=== PATIENT | female | born 1935 | race Caucasian/White ===

== ENCOUNTER → 2019-05-23 | Outpatient (CLI) | payer MEDICARE ==
--- NOTE | 2019-05-28 12:35 | MY ---
Date of Service: 05/23/19 Clinical Data: Encounter for screening mammogram for malignant neoplasm of breast BILATERAL MAMMOGRAMS: Comparison is made to a prior exam dated 04/07/18. The breasts are almost entirely fat. No changes from the prior exam. No evidence of malignancy. IMPRESSION: No evidence of malignancy. One-year followup mammography is recommended. BI-RAD A: Mammogram - The breasts are almost entirely fatty ACR 1 - Negative Mammogram. The exam was reviewed with R2 CAD. [id number] [facility] [place]
== END ==
LOC: LB.MAM 14:15
PROVIDERS: ATTEND Nurse Practitioner Family
DX: Z12.31 Encounter for screening mammogram for malignant neoplasm of breast (principal)
CPT/HCPCS: 77067

== ENCOUNTER 2023-08-12 05:20 | Inpatient (IN) | payer MEDICARE ==
[2023-08-12] MEDS ORDERED: Sodium Chloride 0.9% 10 ML Syringe FLUSH PRN (05:41)
[2023-08-12] MEDS: Aspirin 81 MG Tab.Chew PO ONE (05:52)
[2023-08-12 06:00] LABS: HEMATOCRIT 40.4 % (37.0-47.0); HEMOGLOBIN 12.5 g/dL (11.5-16.5); MEAN CORPUSCULAR HEMOGLOBIN 31.9 pg (27.0-32.0); MEAN CORPUSCULAR HGB CONC 30.9 g/dL (31.0-35.0); MEAN PLATELET VOLUME 11.5 fL (6.0-10.0); RED BLOOD CELL COUNT 3.92 M/uL (3.80-5.80); RED CELL DISTRIBUTION WIDTH 13.8 % (11.0-16.0); WHITE BLOOD CELL COUNT,WBC 8.1 K/uL (4.0-11.0)
[2023-08-12 06:29] LABS: MAGNESIUM 1.9 mg/dL (1.8-2.4)
[2023-08-12 06:33] LABS: A/G RATIO 1.2 (0.8-2.0); ALBUMIN 3.5 g/dL (3.4-5.0); ANION GAP 17.7 mmol/L (5.0-15.0); BILIRUBIN TOTAL 0.6 mg/dL (0.0-1.0); BUN/CREATININE RATIO 18.1 (6-25); CALCIUM 9.3 mg/dL (8.5-10.1); CARBON DIOXIDE,CO2 23.8 mmol/L (21.0-32.0); CREATININE 0.72 mg/dL (0.55-1.02); EST CRCL DRUG DOSING (CG) 44.54 mL/min; POTASSIUM,K 3.5 mmol/L (3.5-5.1); PROTEIN TOTAL,TP 6.3 g/dL (6.4-8.2)
[2023-08-12] MEDS ORDERED: Furosemide 20 MG/2 ML VIAL IVPUSH ONE (07:15)
[2023-08-12] MEDS: Furosemide 20 MG/2 ML VIAL IVPUSH ONE (07:17)
[2023-08-12 10:26] LABS: PTT,PARTIAL THROMBOPLSTIN TIME 24.6 SECONDS (24.4-33.2)
[2023-08-12 10:27] LABS: PROTHROMBIN TIME 10.4 sec (9.0-11.5)
[2023-08-12] MEDS: Heparin Sodium 5,000 Units/ML Vial IVPUSH ONE (10:35)
[2023-08-12] MEDS: Furosemide 20 MG Tab PO SCH ×2 (10:35→14:29)
[2023-08-12] MEDS: Heparin Sodium/D5W 25,000 UNITS/500 ML BAG IV SCH (10:39)
[2023-08-12 15:33] LABS: ANION GAP 13.9 mmol/L (5.0-15.0); BUN/CREATININE RATIO 15.9 (6-25); CALCIUM 9.3 mg/dL (8.5-10.1); CARBON DIOXIDE,CO2 26.6 mmol/L (21.0-32.0); CREATININE 0.88 mg/dL (0.55-1.02); EST CRCL DRUG DOSING (CG) 36.44 mL/min; POTASSIUM,K 3.5 mmol/L (3.5-5.1)
[2023-08-12 15:45] LABS: TROPONIN I HIGH SENSITIVITY 125.8 pg/ml (<=60.4)
[2023-08-12] MEDS: Empagliflozin 10 MG Tab PO SCH (17:01)
[2023-08-12] MEDS: Simvastatin 20 MG Tab PO SCH (19:35)
[2023-08-13] MEDS: Heparin Sodium 5,000 Units/ML Vial IVPUSH ONE (00:13)
[2023-08-13] MEDS: Heparin Sodium 1,000 Units/ML 10 ML MDV ONE ×2 (00:15→14:02)
[2023-08-13 07:20] LABS: BASOPHILS ABSOLUTE AUTO 0.03 K/uL (0.02-0.10); BASOPHILS PERCENT AUTO 0.5 % (0.0-0.5); EOSINOPHILS ABSOLUTE AUTO 0.19 K/uL (0.04-0.40); HEMATOCRIT 40.7 % (37.0-47.0); HEMOGLOBIN 12.2 g/dL (11.5-16.5); LYMPHOCYTES PERCENT AUTO 31.5 % (20.0-40.0); MEAN CORPUSCULAR HEMOGLOBIN 32.3 pg (27.0-32.0); MEAN CORPUSCULAR VOLUME 108 fL (76-96); MEAN PLATELET VOLUME 11.8 fL (6.0-10.0); MONOCYTES ABSOLUTE AUTO 0.63 K/uL (0.20-0.80); MONOCYTES PERCENT AUTO 9.9 % (3.0-10.0); NEUTROPHILS PERCENT AUTO 55.1 % (45.0-70.0); PLATELET COUNT,PLT 241 K/uL (150-500); RED BLOOD CELL COUNT 3.78 M/uL (3.80-5.80); WHITE BLOOD CELL COUNT,WBC 6.4 K/uL (4.0-11.0)
[2023-08-13] MEDS: Lisinopril 20 MG Tab PO SCH (07:46)
[2023-08-13 10:03] LABS: A/G RATIO 1.1 (0.8-2.0); ALBUMIN 3.2 g/dL (3.4-5.0); ANION GAP 9.7 mmol/L (5.0-15.0); BILIRUBIN TOTAL 0.4 mg/dL (0.0-1.0); CALCIUM 9.2 mg/dL (8.5-10.1); CARBON DIOXIDE,CO2 30.5 mmol/L (21.0-32.0); CREATININE 0.8 mg/dL (0.55-1.02); EST CRCL DRUG DOSING (CG) 40.08 mL/min; POTASSIUM,K 4.2 mmol/L (3.5-5.1); PROTEIN TOTAL,TP 6.1 g/dL (6.4-8.2)
[2023-08-13 10:08] LABS: TROPONIN I HIGH SENSITIVITY 78.9 pg/ml (<=60.4)
[2023-08-13] MEDS: Metoprolol Succinate 25 MG Tab.ER PO SCH (11:31)
[2023-08-13] MEDS ORDERED: Heparin Sodium 5,000 Units/ML Vial IVPUSH SCH (14:00)
[2023-08-13] MEDS: Heparin Sodium 5,000 Units/ML Vial IVPUSH SCH (14:03)
[2023-08-13] MEDS: diphenhydrAMINE 50 MG/ML SDV IVPUSH ONE ×2 (15:08→15:50)
[2023-08-14 06:34] LABS: HEMATOCRIT 39.6 % (37.0-47.0); HEMOGLOBIN 11.8 g/dL (11.5-16.5); MEAN CORPUSCULAR HEMOGLOBIN 31.9 pg (27.0-32.0); MEAN CORPUSCULAR HGB CONC 29.8 g/dL (31.0-35.0); MEAN CORPUSCULAR VOLUME 107 fL (76-96); MEAN PLATELET VOLUME 11.3 fL (6.0-10.0); PLATELET COUNT,PLT 231 K/uL (150-500); RED CELL DISTRIBUTION WIDTH 14.2 % (11.0-16.0); WHITE BLOOD CELL COUNT,WBC 7.5 K/uL (4.0-11.0)
[2023-08-14 06:49] LABS: ANION GAP 11.5 mmol/L (5.0-15.0); BILIRUBIN TOTAL 0.4 mg/dL (0.0-1.0); BUN/CREATININE RATIO 18.3 (6-25); CALCIUM 9.2 mg/dL (8.5-10.1); CARBON DIOXIDE,CO2 28.4 mmol/L (21.0-32.0); CREATININE 0.82 mg/dL (0.55-1.02); EST CRCL DRUG DOSING (CG) 39.11 mL/min; POTASSIUM,K 3.9 mmol/L (3.5-5.1)
[2023-08-14 07:00] LABS: TROPONIN I HIGH SENSITIVITY 60.5 pg/ml (<=60.4)
[2023-08-14 07:45] LABS: ANISOCYTOSIS FEW; BURR CELLS FEW; ELLIPTOCYTES OCCASIONAL; GIANT PLATELETS RARE; HELMET CELLS FEW; PLATELET COUNT ESTIMATE ADEQUATE; POIKILOCYTOSIS FEW; STOMATOCYTES OCCASIONAL
[2023-08-14 16:21] VITALS: BP 147/101; PULSE 100
== END 2023-08-14 15:50 | DRG 280 ==
LOC: LB.ED 05:31 → SUPCPDRO 05:31 → UNDOADMIN 09:38 → LB.MS 09:38 → UNDOADMIN 10:18 → LB.MS 10:18
PROVIDERS: ADMIT Surgery; ATTEND Surgery
DX: I11.0 Hypertensive heart disease with heart failure (principal); I21.4 Non-ST elevation (NSTEMI) myocardial infarction; I50.33 Acute on chronic diastolic (congestive) heart failure; J90 Pleural effusion, not elsewhere classified; Z79.899 Other long term (current) drug therapy; R09.02 Hypoxemia
CPT/HCPCS: 36415; 71045; 71250; 80048; 80053; 83735; 83880; 84484; 85025; 85027; 85379; 85610; 85730; 93005; 93010; 96374; 99222; 99233; 99239; 99285; 99285-25; A9270-GY; J1200; J1644; J1940

== ENCOUNTER 2024-02-14 09:22 | Emergency (ER) | payer MEDICARE ==
[2024-02-14] MEDS: Acetaminophen/HYDROcodone 325-5 MG Tab PO ONE (10:53)
[2024-02-14 11:11] LABS: APPEARANCE,URINE CLEAR (CLEAR); BILIRUBIN,URINE NEGATIVE (NEGATIVE); COLOR,URINE YELLOW; GLUCOSE,URINE NEGATIVE (NEGATIVE); KETONES,URINE NEGATIVE (NEGATIVE); LEUKOCYTE ESTERASE,URINE SMALL (NEGATIVE); NITRITE,URINE NEGATIVE (NEGATIVE); OCCULT BLOOD,URINE TRACE-LYSED (NEGATIVE); PH,URINE 5.5 (5.0-8.0); PROTEIN,URINE NEGATIVE (NEGATIVE); UROBILINOGEN,URINE 0.2 E.U./dL (0.2-1.0)
[2024-02-14 11:17] LABS: RBC,URINE 0-5 /HPF; SQUAMOUS EPITHELIAL CELLS,UR OCCASIONAL /HPF; WBC,URINE 0-5 /HPF
[2024-02-15] MEDS: Morphine 4 MG/ML VIAL IVPUSH ONE (11:22)
== END 2024-02-14 12:51 | disposition home or self-care (01) ==
LOC: LB.ED 09:22
DX: S20.212A Contusion of left front wall of thorax, initial encounter (principal); N39.0 Urinary tract infection, site not specified; E78.00 Pure hypercholesterolemia, unspecified; I11.0 Hypertensive heart disease with heart failure; I50.9 Heart failure, unspecified; Z79.899 Other long term (current) drug therapy; Z79.82 Long term (current) use of aspirin; Z88.8 Allergy status to other drugs, medicaments and biological substances
CPT/HCPCS: 71101; 71250; 81001; 87086; 99284; A9270

== ENCOUNTER 2024-06-16 20:21 | Observation (INO) | payer MEDICARE ==
[2024-06-16 20:42] LABS: BASOPHILS ABSOLUTE AUTO 0.02 K/uL (0.02-0.10); BASOPHILS PERCENT AUTO 0.3 % (0.0-0.5); EOSINOPHILS ABSOLUTE AUTO 0.09 K/uL (0.04-0.40); EOSINOPHILS PERCENT AUTO 1.4 % (1.0-5.0); HEMATOCRIT 35.1 % (37.0-47.0); HEMOGLOBIN 11.4 g/dL (11.5-16.5); LYMPHOCYTES ABSOLUTE AUTO 1.36 K/uL (1.50-4.00); MEAN CORPUSCULAR HGB CONC 32.5 g/dL (31.0-35.0); MEAN CORPUSCULAR VOLUME 99 fL (76-96); MEAN PLATELET VOLUME 10.8 fL (6.0-10.0); MONOCYTES ABSOLUTE AUTO 0.47 K/uL (0.20-0.80); MONOCYTES PERCENT AUTO 7.3 % (3.0-10.0); NEUTROPHILS ABSOLUTE AUTO 4.54 K/uL (2.00-7.50); PLATELET COUNT,PLT 207 K/uL (150-500); RED BLOOD CELL COUNT 3.56 M/uL (3.80-5.80); RED CELL DISTRIBUTION WIDTH 13.2 % (11.0-16.0); WHITE BLOOD CELL COUNT,WBC 6.5 K/uL (4.0-11.0)
[2024-06-16 20:56] LABS: A/G RATIO 1.3 (0.8-2.0); ALBUMIN 3.7 g/dL (3.4-5.0); ANION GAP 15.9 mmol/L (5.0-15.0); BILIRUBIN TOTAL 0.5 mg/dL (0.0-1.0); BUN/CREATININE RATIO 28.6 (6-25); CARBON DIOXIDE,CO2 25.5 mmol/L (21.0-32.0); CREATININE 0.91 mg/dL (0.55-1.02); EST CRCL DRUG DOSING (CG) 35.24 mL/min; POTASSIUM,K 4.4 mmol/L (3.5-5.1); PROTEIN TOTAL,TP 6.5 g/dL (6.4-8.2)
[2024-06-16 21:14] LABS: APPEARANCE,URINE CLEAR (CLEAR); BILIRUBIN,URINE NEGATIVE (NEGATIVE); COLOR,URINE YELLOW; GLUCOSE,URINE NEGATIVE (NEGATIVE); KETONES,URINE NEGATIVE (NEGATIVE); LEUKOCYTE ESTERASE,URINE NEGATIVE (NEGATIVE); NITRITE,URINE NEGATIVE (NEGATIVE); OCCULT BLOOD,URINE NEGATIVE (NEGATIVE); PH,URINE 5.5 (5.0-8.0); PROTEIN,URINE NEGATIVE (NEGATIVE); UROBILINOGEN,URINE 0.2 E.U./dL (0.2-1.0)
[2024-06-16] MEDS: Sodium Chloride 0.9% 10 ML Syringe FLUSH PRN (22:15)
[2024-06-16] MEDS: Sodium Chloride 0.9% 1,000 ML IV ONE (23:53)
[2024-06-17] MEDS ORDERED: Acetaminophen 500 MG Tab PO PRN (01:00)
[2024-06-17] MEDS ORDERED: NITROGLYCERIN 0.4 MG SL PRN (01:02)
[2024-06-17] MEDS: Sodium Chloride 0.9% 1,000 ML IV SCH (05:27)
[2024-06-17] MEDS: Pantoprazole 40 MG Vial IVPUSH ONE (05:28)
[2024-06-17 05:50] LABS: BASOPHILS ABSOLUTE AUTO 0.03 K/uL (0.02-0.10); BASOPHILS PERCENT AUTO 0.5 % (0.0-0.5); EOSINOPHILS ABSOLUTE AUTO 0.06 K/uL (0.04-0.40); EOSINOPHILS PERCENT AUTO 1.1 % (1.0-5.0); HEMATOCRIT 25.8 % (37.0-47.0); HEMOGLOBIN 8.3 g/dL (11.5-16.5); LYMPHOCYTES ABSOLUTE AUTO 1.41 K/uL (1.50-4.00); LYMPHOCYTES PERCENT AUTO 25.6 % (20.0-40.0); MEAN CORPUSCULAR HEMOGLOBIN 31.9 pg (27.0-32.0); MEAN CORPUSCULAR HGB CONC 32.2 g/dL (31.0-35.0); MEAN CORPUSCULAR VOLUME 99 fL (76-96); MEAN PLATELET VOLUME 10.9 fL (6.0-10.0); MONOCYTES ABSOLUTE AUTO 0.39 K/uL (0.20-0.80); MONOCYTES PERCENT AUTO 7.1 % (3.0-10.0); NEUTROPHILS ABSOLUTE AUTO 3.62 K/uL (2.00-7.50); NEUTROPHILS PERCENT AUTO 65.7 % (45.0-70.0); PLATELET COUNT,PLT 178 K/uL (150-500); RED CELL DISTRIBUTION WIDTH 13.1 % (11.0-16.0); WHITE BLOOD CELL COUNT,WBC 5.5 K/uL (4.0-11.0)
[2024-06-17 06:01] LABS: ANION GAP 8.2 mmol/L (5.0-15.0); BUN/CREATININE RATIO 36.5 (6-25); CALCIUM 8.8 mg/dL (8.5-10.1); CARBON DIOXIDE,CO2 25.7 mmol/L (21.0-32.0); CREATININE 0.85 mg/dL (0.55-1.02); EST CRCL DRUG DOSING (CG) 37.73 mL/min; POTASSIUM,K 4.9 mmol/L (3.5-5.1)
[2024-06-17 06:02] LABS: INR 1.1 (1.0-3.5); PROTHROMBIN TIME 11.1 sec (9.0-11.5)
[2024-06-17] MEDS ORDERED: Octreotide 100 MCG/ML SDV IVPUSH ONE (07:26)
[2024-06-17] MEDS ORDERED: ASPIRIN 81 MG PO SCH (08:00)
[2024-06-17] MEDS: Octreotide Depot 20 MG Kit for Injection IM ONE (09:20)
[2024-06-17] MEDS: OCTREOTIDE SUBCUT ONE (09:31)
[2024-06-17] MEDS ORDERED: FLU (Fluad Triv) TS24-25 (65UP)/MF59C/PF 45 MCG/0.5 ML Syringe IM ONE (10:00)
[2024-06-17] MEDS: ENTRESTO PO SCH (11:45)
[2024-06-17] MEDS: METOPROLOL SUCCINATE 25 MG PO SCH (11:45)
[2024-06-17] MEDS: MULTIVITAMIN PO SCH (11:45)
[2024-06-17] MEDS: SPIRONOLACTONE 25 MG PO SCH (11:45)
[2024-06-17] MEDS ORDERED: SIMVASTATIN 20 MG PO SCH (20:00)
[2024-06-17] MEDS ORDERED: CHOLECALCIFEROL 25 MCG PO SCH (20:00)
[2024-06-19] MEDS ORDERED: Furosemide 20 MG Tab PO SCH (08:00)
== END 2024-06-17 12:11 ==
LOC: LB.ED 20:21 → LB.MS 22:27
PROVIDERS: ADMIT Surgery; ATTEND Surgery
DX: K62.5 Hemorrhage of anus and rectum (principal); I11.0 Hypertensive heart disease with heart failure; I50.9 Heart failure, unspecified; E78.00 Pure hypercholesterolemia, unspecified; Z79.82 Long term (current) use of aspirin; Z79.899 Other long term (current) drug therapy
CPT/HCPCS: 36415; 36430; 80048; 80053; 81003; 85018; 85025; 85610; 86850; 86900; 86901; 86920; 86922; 96361; 96372; 96374; C1758; G0378; J2470; J7030; P9016; 99222; 99238